=== PATIENT | male | born 1960 | race Caucasian/White ===

== ENCOUNTER 2017-03-20 13:05 | Day surgery (SDC) | payer BC ==
[~2017-03-20 13:05] MED LIST: CLARITIN 10MG T10 MG PO; DIABETA2.5 MG PO; OMNICEF 300 MG300 MG PO; PANTOPRAZOLE SO40 M1 PO; PHENERGAN 25MG.25 M1 PO; ZOFRAN ODT4 MG PO
--- NOTE | 2017-03-20 15:12 | Operative Note ---
Upper GI Endoscopy Procedure date: 03/20/17 Date of : 64 Procedure:Upper GI Endoscopy Esophagogastroduodenoscopy with cold biopsies Indications: Mr. Alvarez is a 56-year-old gentleman with a history of gastroesophageal reflux disease for which he takes omeprazole 40 mg by mouth daily after being diagnosed with short segment Woody's esophagus in 2013 (Dr. Yordan Bird). The patient has had some tickling in the throat with frequent clearance of the throat and mucus accumulation. He formerly had some dysphagia prior to taking omeprazole. He has some mild bloating but no belching. EGD is performed for further evaluation. Performing Provider: Evans Arguelles MD Referring Provider: Akin FLORES Sedation: Fentanyl 150 mg IV/Versed 7 mg IV Procedure: Prior to the procedure, a history and physical exam was performed, and patients medications and allergies were reviewed. The risks and benefits of the procedure and the sedation options and risks were discussed with the patient. All questions were answered and informed consent was obtained. The patient was brought to the procedure room. Patient identification and proposed procedure were verified by the physician and the nurse. The patient was placed in a left lateral decubitus position and the scope was passed under direct vision. Throughout the procedure, the patient's blood pressure, pulse, and oxygen saturations were monitored continuously. The endoscope was introduced through the mouth, and advanced to the second part of duodenum. The upper GI endoscopy was accomplished without difficulty. The patient tolerated the procedure well. Findings: The scope was passed directly into the upper esophagus and advanced to the third portion of the duodenum. The post bulbar duodenum and duodenal bulb were normal with normal mucosa and conniventes except there was some mild duodenal lymphoid stasis. Cold biopsies were taken from the post bulbar duodenum. The scope was withdrawn through a normal duodenal bulb and pylorus into the stomach. There was some bile reflux with mild linear erythema of the antrum. The remainder of the antrum, body and fundus of the stomach were grossly normal. Upon retroflexion there was no hiatal hernia. 2 biopsies were taken in the antrum and along the lesser curvature for histology. The scope was then withdrawn into the esophagus. There was one short tongue of salmon-colored mucosa that was biopsied to rule out intestinal metaplasia/Woody's. There was no evidence of reflux esophagitis and there were some tertiary contractions and evidence of mild esophageal dysmotility. The remainder of the esophageal mucosa was normal. Immediate complications: None EBL (ml): 0 Impression: 1. Nonerosive gastroesophageal reflux disease with mild esophageal dysmotility and mild cricopharyngeal spasm 2. Very short segment Woody's esophagus 3. Bile reflux with mild linear reactive gastritis Recommendations: I do feel that the patient has some functional gastroesophageal reflux disease and may benefit from promotility therapy. We will discuss additional treatment options and I will follow up the biopsies. at 1511
[2017-03-20 16:25] LABS: HEMOGLOBIN 15.6 g/dL (14.1-18.0); LYMPH # 1.8 K/mm3 (0.7-4.5); LYMPH % 21.9 % (10-50)
[2017-03-20 16:41] LABS: BUN 15 mg/dL (7-18)
[2017-03-20 16:43] VITALS: BP 135/90
[2017-03-20 16:46] LABS: GFR (ESTIMATED) 88 ML/MIN (>60)
== END 2017-03-20 16:09 | disposition home or self-care (01) ==
LOC: SDC 13:05
PROVIDERS: Internal Medicine Gastroenterology; Nurse Practitioner Family
PROC: 0DB68ZX Excision of Stomach, Via Natural or Artificial Opening Endoscopic, Diagnostic (ICD-10-PCS; 2017-03-20)
PROC: 0DB98ZX Excision of Duodenum, Via Natural or Artificial Opening Endoscopic, Diagnostic (ICD-10-PCS; principal; 2017-03-20 14:30)
DX: K21.9 Gastro-esophageal reflux disease without esophagitis (principal); K22.4 Dyskinesia of esophagus; J39.2 Other diseases of pharynx; K22.70 Barrett's esophagus without dysplasia; K29.60 Other gastritis without bleeding

== ENCOUNTER 2017-03-28 03:12 | Emergency (ER) | payer BC ==
[~2017-03-28] VITALS: Ht 177.8 cm; Wt 100.7 kg
[2017-03-28] MEDS ORDERED: AMOXICILLIN 50500 MG PO (03:26)
[2017-03-28] MEDS ORDERED: LANSOPRAZOLE30 MG PO (03:27)
[2017-03-28] MEDS ORDERED: BIAXIN FILMTAB500 MG PO (03:27)
[2017-03-28] MEDS ORDERED: ALOGLIPTIN-PIO1 EAC1 PO (03:28)
[2017-03-28] MEDS ORDERED: BUPROPION HCL75 M1 PO (03:28)
--- OUTSIDE RECORDS SUMMARY | 2017-03-28 03:28 | External Medical Summary Rpt | CCD ---
Demographics Preferred Language Dominican Marital Status Unknown Bahai Affiliation Unknown Race Unknown Ethnic Group Unknown Author Author , TOÑO LUNDBERG Address Unknown Phone Immunization No patient found.
--- OUTSIDE RECORDS SUMMARY | 2017-03-28 03:28 | External Medical Summary Rpt | CCD ---
Author Author [employer] Organization [employer] Address Unknown Phone Unavailable Purpose Continuity of Care Document - through 2016
--- OUTSIDE RECORDS SUMMARY | 2017-03-28 03:28 | External Medical Summary Rpt | CCD ---
Author Author , TOÑO Organization TOÑO Address Unknown Phone [email or web address] Care Team Providers Care Eeg Technologist Name Role Phone CARMEN TRAVIS MD, Unavailable Unavailable CARMEN TRAVIS MD Purpose Continuity of Care Document - 02-15-2013 through 2016 Problems Code Diagnosis DOS Provider Status 250.00 250.00 DIAB 02-15-2013 [facility], [facility] Hospital II OR UNSPEC TYPE, NOT UNCNTRLD 780.4 780.4 02-15-2013 [facility] GIDDINESS E86.0 DEHYDRATION K52.9 NONINFECTIV E GASTROENTER ITIS AND COLITIS, UNSPECIFIED N39.0 URINARY TRACT INFECTION, SITE NOT SPECIFIED Allergies, Adverse Reactions, Alerts Type Allergy to substance Adverse Reaction to Substance Substance Reaction Severity INGREDIENT: NO KNOWN Unknown Unknown - NO KNOWN DRUG ALLERGY Medications Na ND Rx Da Fi Fi Am Da Di Ph RX Ph St me C No te ll ll ou ys ag ar # ys at rm s nt no ma ic us Or Da si cy ia de te s n re d SO 00 10 0 No DI 40 -0 UM 97 4- Lo 98 20 ng CH 30 13 er LO 9 RI Ac DE ti ve 0. 9% SO RONAL TI ON Sa 63 10 0 No li 80 -0 ne 70 4- Lo 10 20 ng Fl 07 13 er us 5 h Ac 10 ti ML ve Sy ri ng e DI 00 10 0 No PH 40 -0 EN 92 4- Lo HY [address] 03 13 er AM 1 IN Ac E ti 50 ve MG /M L SY RN G DI 00 10 0 No AZ 40 -0 EP 91 4- Lo AM 27 20 ng 33 13 er 10 2 Ac MG ti /2 ve ML CA RP UJ EC T Vital Signs 02-15-2013 10:08 Name Value Interpretat Reference Comment ion Range Body 98.3 [degF] Temperature BP 92 mm[Hg] Diastolic BP Systolic 140 mm[Hg] Heart 85 /min Rate/Pulse O2% 97 % Respiratory 18 /min Rate 02-15-2013 08:12 Name Value Interpretat Reference Comment ion Range Body 97.9 [degF] Temperature BP 88 mm[Hg] Diastolic BP Systolic 149 mm[Hg] Heart 84 /min Rate/Pulse O2% 99 % Respiratory 18 /min Rate Results Labs Lab Lab Date Result Refere Interp Status Commen Order Detail nces retati t Range on Hemoglobin A1c measurement (03-20-2017 16:06) Hemoglo 10.2 % 0.0-7.0 complet bin A1c 017 ed 16:06 Comment: < 6% NON-DIABETIC LEVEL Comment: < 7% CONTROLLED DIABETIC LEVEL Comment: > 8% POORLY CONTROLLED DIABETIC LEVEL Serum or plasma thyroid stimulating horm (03-20-2017 16:06) Serum = 1.47 0.358-3 complet or 017 uIU/ml .740 ed plasma 16:06 thyroid stimula ting horm Lipid profile (03-20-2017 16:06) Serum = 22.0 0-40 complet or 017 ed plasma 16:06 cholest reinier in VLDL wendi Serum = 110 30-200 complet or 017 mg/dL ed plasma 16:06 triglyc eride measure ment Serum = 161.0 0-130 complet or 017 mg/dL ed plasma 16:06 cholest reinier in LDL measu Serum = 38.0 40-60 complet or 017 MG/DL ed plasma 16:06 cholest reinier in HDL measu Total = 221 < 200 complet cholest 017 mg/dL ed reinier 16:06 measure ment Serum or plasma free thyroxine (T4) wendi (03-20-2017 16:06) Serum = 1.27 0.76-1. complet or 017 ng/dL 46 ed plasma 16:06 free thyroxi ne (T4) wendi Comprehensive metabolic panel (03-20-2017 16:06) Protein = 6.8 6.4-8.2 complet total 017 gm/dL ed ser/roberto 16:06 s ALT = 22 12-78 complet (SGPT) 017 U/L ed ser/roberto 16:06 s Serum = 9 U/L 15-37 complet or 017 ed plasma 16:06 asparta te aminotr ansfera Serum = 137 136-145 complet sodium 017 mmoL/L ed measure 16:06 ment Serum = 4.1 3.5-5.1 complet potassi 017 mmoL/L ed um 16:06 measure ment Serum = 186 74-106 complet or 017 mg/dL ed plasma 16:06 glucose measure ment (mas Serum = 3.3 1.3-3.2 complet globuli 017 gm/dL ed n 16:06 measure ment (mass/v olume) Estimat = 88 >60 complet ed 017 ML/MIN ed glomeru 16:06 lar filtrat ion rate (GF Comment: REFERENCE RANGE: >60 ML/MIN/1.73 SQUARE METERS Comment: If this patient is -Georgian, then multiply the Comment: result by 1.210. Serum = 0.9 0.70-1. complet or 017 mg/dL 30 ed plasma 16:06 creatin ine measure ment ( Carbon = 29 21.0-32 complet dioxide 017 mmoL/L .0 ed 16:06 measure ment Serum = 104 98-107 complet or 017 mmoL/L ed plasma 16:06 chlorid e measure ment (mo Serum = 8.7 8.5-10. complet or 017 mg/dL 1 ed plasma 16:06 calcium measure ment (mas Serum = 15 7-18 complet or 017 mg/dL ed plasma 16:06 urea nitroge n measure men Serum = 0.5 0.2-1.0 complet or 017 mg/dL ed plasma 16:06 total bilirub in measure m Serum = 102 46-116 complet or 017 U/L ed plasma 16:06 alkalin e phospha tase katey Serum = 3.5 3.4-5.0 complet or 017 gm/dL ed plasma 16:06 albumin measure ment (mas Serum = 1.1 1.1-1.8 complet or 017 ed plasma 16:06 albumin /globul in mass ra CBC w auto diff (03-20-2017 16:06) Blood = 8.3 4.8-10. complet leukocy 017 K/MM3 8 ed malik 16:06 count (number /volume ) Automat = 13.4 11.5-17 complet ed 017 % .5 ed erythro 16:06 cyte distrib ution width Red = 5.65 4.6-6.2 complet blood 017 M/mm3 ed cell 16:06 count Blood = 270 142-424 complet platele 017 K/mm3 ed t count 16:06 Automat = 7.2 7.4-10. complet ed 017 fl 4 ed blood 16:06 platele t mean volume katey [place] % = 6.8 % 1.7-9.3 complet 017 ed 16:06 Absolut = 0.6 0.1-1.0 complet e 017 K/mm3 ed monocyt 16:06 e count Automat = 83.1 82.2-97 complet ed 017 fl .8 ed erythro 16:06 cyte mean corpusc ular v Automat = 33.2 31.8-35 complet ed 017 g/dl .4 ed erythro 16:06 cyte mean corpusc ular h Mean = 27.6 27-31.2 complet corpusc 017 pg ed ular 16:06 hemoglo bin (MCH) determ Lymphoc = 21.9 10-50 complet yte 017 % ed count, 16:06 blood, automat ed Absolut = 1.8 0.7-4.5 complet e 017 K/mm3 ed lymphoc 16:06 yte count Blood = 15.6 14.1-18 complet hemoglo 017 g/dL .0 ed bin 16:06 measure ment (mass/v olum Blood = 46.9 42.0-52 complet hematoc 017 % .0 ed rit 16:06 (volume fractio n) Blood = 5.5 1.3-8.0 complet granulo 017 K/mm3 ed cytes 16:06 automat ed count (numb Automat = 4.5 % 0.1-12. complet ed 017 0 ed blood 16:06 eosinop hils/10 0 leukocy t Automat = 0.4 0.0-0.4 complet ed 017 K/mm3 ed blood 16:06 eosinop hil count Automat = 0.1 0-0.2 complet ed 017 K/MM3 ed blood 16:06 basophi l count (count/ vo Granulo = 66.0 37.0-80 complet cyte 017 % .0 ed percent 16:06 age Baso % = 0.8 % 0.1-2.0 complet 017 ed 16:06 Hemoglobin A1c in Blood (03-20-2017 16:06) Hemoglo 10.2 % 0.0% High complet bin A1c 017 - ed in 16:06 7.0% Blood Glucose capillary blood glucometer (03-20-2017 13:43) Glucose = 197 70-110 complet 017 mg/dl ed capilla 13:[address] COMPREHENSIVE METABOLIC PANEL (02-15-2013 07:40) Glucose 285 74-106 complet 013 mg/dL ed Bld-mCn 07:40 c BUN 20 7-18 complet Bld-mCn 013 mg/dL ed c 07:40 Creat 1.2 0.8-1.3 complet SerPl-m 013 mg/dL ed Cnc 07:40 ESTIMAT 109 50-200 complet ED 013 ML/MIN ed CREATIN 07:40 INE CLEARAN CE GFR 64 Greater complet (ESTIMA 013 ML/MIN than ed ISABELLE) 07:40 60 Sodium 141 136-145 complet SerPl-s 013 mmoL/L ed Cnc 07:40 Potassi 4.1 3.5-5.1 complet um 013 mmoL/L ed SerPl-s 07:40 Cnc Chlorid 104 98-107 complet e 013 mmoL/L ed SerPl-s 07:40 Cnc CO2 28 21.0-32 complet SerPl-s 013 mmoL/L .0 ed Cnc 07:40 Calcium 02-15-2 8.8 8.5-10. complet 013 mg/dL 1 ed SerPl-m 07:40 Cnc Prot 04-2 7.1 6.4-8.2 complet SerPl-m 013 gm/dL ed Cnc 07:40 Albumin 02-15-2 3.6 3.4-5.0 complet 013 gm/dL ed SerPl-m 07:40 Cnc Globuli 02-15-2 3.5 1.3-3.2 complet n 013 gm/dL ed Ser-mCn 07:40 c Albumin 2 1.0 UNK 1.1-1.8 complet /Glob 013 ed SerPl-m 07:40 Rto Bilirub 02-15-2 0.5 0.2-1.0 complet 013 mg/dL ed SerPl-m 07:40 Cnc AST 02-15-2 13 U/L 15-37 complet SerPl-c 013 ed Cnc 07:40 ALT 02-15-2 44 U/L 30-65 complet SerPl-c 013 ed Cnc 07:40 ALP 02-15-2 155 U/L 50-136 complet SerPl-c 013 ed Cnc 07:40 Amylase SerPl-cCnc (02-15-2013 07:40) Amylase 02-15-2 28 U/L 25-115 complet 013 ed SerPl-c 07:40 Cnc LIPASE (02-15-2013 07:40) LIPASE 02-15-2 70 U/L 73-393 complet 013 ed 07:40 CBC with AUTO DIFF (02-15-2013 07:40) WBC # 10-04-2 9.1 4.8-10. complet Bld 013 K/MM3 8 ed Auto 07:40 RBC # 10-04-2 5.93 4.6-6.2 complet Bld 013 M/mm3 ed Auto 07:40 Hgb 02-15-2 16.7 14.1-18 complet Bld-mCn 013 g/dL .0 ed c 07:40 Hct Fr 02-15-2 48.9 % 42.0-52 complet Bld 013 .0 ed 07:40 MCV RBC 02-15-2 82.4 fl 82.2-97 complet 013 .8 ed 07:40 MCH RBC 02-15-2 28.1 pg 27-31.2 complet Qn 013 ed Auto 07:40 MEAN 10-04-2 34.2 31.8-35 complet CORPUSC 013 g/dl .4 ed ULAR 07:40 HGB CONC RDW RBC 10-04-2 14.8 % 11.5-17 complet Auto 013 .5 ed 07:40 Platele 10-04-2 233 142-424 complet t Bld 013 K/mm3 ed Ql 07:40 Manual MEAN 10-04-2 7.5 fl 7.4-10. complet PLATELE 013 4 ed T 07:40 VOLUME Granulo 10-04-2 76.8 % 37.0-80 complet cytes 013 .0 ed Fr Bld 07:40 Auto LYMPH % 10-04-2 15.8 % 10-50 complet 013 ed 07:40 Monocyt 10-04-2 5.2 % 1.7-9.3 complet es Fr 013 ed Bld 07:40 Auto Eosinop 10-04-2 1.9 % 0.1-12. complet hil Fr 013 0 ed Bld 07:40 Auto Basophi 10-04-2 0.3 % 0.1-2.0 complet ls Fr 013 ed Bld 07:40 Auto Granulo 10-04-2 7.0 1.3-8.0 complet cytes # 013 K/mm3 ed Bld 07:40 Auto Lymphoc 10-04-2 1.4 0.7-4.5 complet ytes Fr 013 K/mm3 ed Bld 07:40 Auto Monocyt 10-04-2 0.5 0.1-1.0 complet es # 013 K/mm3 ed Bld 07:40 Auto Eosinop 10-04-2 0.2 0.0-0.4 complet hil # 013 K/mm3 ed Bld 07:40 Auto Basophi 10-04-2 0.0 0-0.2 complet ls # 013 K/MM3 ed Bld 07:40 Auto Encounters Encounter Start End Date Code Location Performer Type Date Emergency VANESSA TRAVIS (ER) 3 07:29 3 10:10 [facility] CARMEN
--- OUTSIDE RECORDS SUMMARY | 2017-03-28 03:28 | External Medical Summary Rpt ---
Author Author TOÑO Gomez, TOÑO [employer] Organization [employer] Address Unknown Phone Unavailable Results Hemoglobin A1c in Blood Observa Value Referen Units Interpr Notes Date tion ce etation Range Hemoglo 10.2 0.0 - % High < 6% Mar 20 bin A1c 7.0 NON-ALLEN 2017 in BETIC 4:06 PM Blood LEVEL< 7% CONTROL LED DIABETI C LEVEL> 8% POORLY CONTROL LED DIABETI C LEVEL Comprehensive metabolic 2000 panel in Serum or Plasma Observa Value Referen Units Interpr Notes Date tion ce etation Range Albumin/G 1.1 - 1.8 No Normal No Mar 20 lobulin informati informati 2016 4:06 [Mass on in on in PM ratio] in source source Serum or data data Plasma Albumin 3.4 - 5.0 gm/dL Normal No Mar 20 [Mass/vol informati 2016 4:06 ume] in on in PM Serum or source Plasma data Alkaline 46 - 116 U/L Normal No Mar 20 phosphata informati 2016 4:06 se on in PM [Enzymati source c data activity/ volume] in Serum or Plasma Bilirubin 0.2 - 1.0 mg/dL Normal No Mar 20 .total informati 2016 4:06 [Mass/vol on in PM ume] in source Serum or data Plasma Urea 7 - 18 mg/dL Normal No Mar 20 nitrogen informati 2016 4:06 [Mass/vol on in PM ume] in source Serum or data Plasma Calcium 8.5 - mg/dL Normal No Mar 20 [Mass/vol 10.1 informati 2017 4:06 ume] in on in PM Serum or source Plasma data Chloride 98 - 107 mmoL/L Normal No Mar 20 [Moles/vo informati 2017 4:06 lume] in on in PM Serum or source Plasma data Carbon 21.0 - mmoL/L Normal No Mar 20 dioxide, 32.0 informati 2017 4:06 total on in PM [Moles/vo source lume] in data Serum or Plasma Creatinin 0.70 - mg/dL Normal No Mar 20 e 1.30 2016 4:06 [Mass/vol on in PM ume] in source Serum or data Plasma Estimated >60 ML/MIN No REFERENCE Mar 20 informati RANGE: 2017 4:06 glomerula on in >60 PM r source ML/MIN/1. filtratio data 73 SQUARE n rate METERSIf (GF this patient is -A merican, then multiply theresult by 1.210. Globulin 1.3 - 3.2 gm/dL High Mar 20 [Mass/vol informati 2016 4:06 ume] in on in PM Serum source data Glucose 74 - 106 mg/dL High No Mar 20 [Mass/vol informati 2016 4:06 ume] in on in PM Serum or source Plasma data Potassium 3.5 - 5.1 mmoL/L Normal No Mar 202016 4:06 [Moles/vo on in PM lume] in source Serum or data Plasma Sodium 136 - 145 mmoL/L Normal Mar 20 [Moles/vo 2016 4:06 lume] in on in PM Serum or source Plasma data Aspartate 15 - 37 U/L Low No Mar 20 informati 2016 4:06 aminotran on in PM sferase source [Enzymati data c activity/ volume] in Serum or Plasma Alanine 12 - 78 U/L Normal Mar 20 aminotran 2016 4:06 sferase on in PM [Enzymati source c data activity/ volume] in Serum or Plasma Protein 6.4 - 8.2 gm/dL Normal Mar 20 [Mass/vol ati 2016 4:06 ume] in on in PM Serum or source Plasma data Thyroxine (T4) free [Mass/volume] in Serum or Plasma Observa Value Referen Units Interpr Notes Date tion ce etation Range Thyroxine 0.76 - ng/dL Normal Mar 20 (T4) 1.46 ati 2016 4:06 free on in PM [Mass/vol source ume] in data Serum or Plasma Lipid 1996 panel in Serum or Plasma Observa Value Referen Units Interpr Notes Date tion ce etation Range Cholester < 200 mg/dL High No Mar 20 ol informati 2016 4:06 [Moles/vo on in PM lume] in source Unspecifi data ed specimen Cholester 40 - 60 MG/DL Low Mar 20 ol in HDL informati 2016 4:06 on in PM [Mass/vol source ume] in data Serum or Plasma Cholester 0 - 130 mg/dL High No Mar 20 ol in LDL 2016 4:06 on in PM [Mass/vol source ume] in data Serum or Plasma by calculati on Triglycer 30 - 200 mg/dL Normal No Mar 20 sofie 2016 4:06 [Moles/vo on in PM lume] in source Serum or data Plasma Cholester 0 - 40 No Normal No Mar 20 ol in inform inform2016 4:06 VLDL on in on in PM [Mass/vol source source ume] in data data Serum or Plasma Thyrotropin [Units/volume] in Serum or Plasma Observa Value Referen Units Interpr Notes Date tion ce etation Range Thyrotrop 0.358 - uIU/ml No No Mar 20 in 3.740 informati informati 2016 4:06 [Units/vo on in on in PM lume] in source source Serum or data data Plasma CBC W Auto Differential panel in Blood Observa Value Referen Units Interpr Notes Date tion ce etation Range Basophils 0 - 0.2 K/MM3 Normal No Mar 202016 4:06 [#/volume on in PM ] in source Blood by data Automated count Basophils 0.1 - 2.0 % Normal No Mar 20 /100 inform2016 4:06 leukocyte on in PM s in source Blood by data Automated count Eosinophi 0.0 - 0.4 K/mm3 Normal No Mar 20 ls 2016 4:06 [#/volume on in PM ] in source Blood by data Automated count Eosinophi 0.1 - % Normal No Mar 20 ls/100 12.0 informati 2016 4:06 leukocyte on in PM s in source Blood by data Automated count Granulocy 1.3 - 8.0 K/mm3 Normal No Mar 20 malik 2016 4:06 [#/volume on in PM ] in source Blood by data Automated count Granulocy 37.0 - % Normal No Mar 20 malik/100 80.0 informati 2016 4:06 leukocyte on in PM s in source Blood by data Automated count Hematocri 42.0 - % Normal No Mar 20 t [Volume 52.0 informati 2016 4:06 on in PM Fraction] source of Blood data Hemoglobi 14.1 - g/dL Normal No Mar 20 n 18.0 informati 2017 4:06 [Mass/vol on in PM ume] in source Blood data Lymphocyt 0.7 - 4.5 K/mm3 Normal No Mar 20 es informati 2016 4:06 [#/volume on in PM ] in source Unspecifi data ed specimen by Automated count Lymphocyt 10 - 50 % Normal No Mar 20 es informati 2016 4:06 [#/volume on in PM ] in source Unspecifi data ed specimen by Automated count Erythrocy 27 - 31.2 pg Normal No Mar 20 te mean informati 2016 4:06 corpuscul on in PM ar source hemoglobi data n [Entitic mass] Erythrocy 31.8 - g/dl Normal No Mar 20 te mean 35.4 informati 2017 4:06 corpuscul on in PM ar source hemoglobi data n concentra tion [Mass/vol ume] by Automated count Erythrocy 82.2 - fl Normal No Mar 20 te mean 97.8 informati 2016 4:06 corpuscul on in PM ar volume source [Entitic data volume] by Automated count Monocytes 0.1 - 1.0 K/mm3 Normal No Mar 20 informati 2016 4:06 [#/volume on in PM ] in source Blood by data Automated count Monocytes 1.7 - 9.3 % Normal No Mar 6 /100 informati 2017 4:06 leukocyte on in PM s in source Blood by data Automated count Platelet 7.4 - fl Low No Mar 20 mean 10.4 informati 2017 4:06 volume on in PM [Entitic source volume] data in Blood by Automated count Platelets 142 - 424 K/mm3 Normal No Mar 20 informati 2016 4:06 [#/volume on in PM ] in source Blood data Erythrocy 4.6 - 6.2 M/mm3 Normal No Mar 6 malik informati 2017 4:06 [#/volume on in PM ] in source Amniotic data fluid Erythrocy 11.5 - % Normal No Mar 20 te 17.5 informati 2016 4:06 distribut on in PM ion width source [Entitic data volume] by Automated count Leukocyte 4.8 - K/MM3 Normal No Mar 6 s 10.8 informati 2016 4:06 [#/volume on in PM ] in source Blood data Glucose [Mass/volume] in Capillary blood by Glucometer Observa Value Referen Units Interpr Notes Date tion ce etation Range Glucose 70 - 110 mg/dl High No Nov 6 [Mass/vol informati 2017 1:43 ume] in on in PM Capillary source blood by data Glucamadou r
--- OUTSIDE RECORDS SUMMARY | 2017-03-28 03:28 | External Medical Summary Rpt | CCD ---
Author Author , TOÑO Organization TOÑO Address Unknown Phone [email or web address] Care Team Providers Care Consumer Loan Officer Name Role Phone CARMEN TRAVIS MD, Unavailable Unavailable CARMEN TRAVIS MD Purpose Continuity of Care Document - 02-15-2013 through 2016 Problems Code Diagnosis DOS Provider Status 250.00 250.00 DIAB 02-15-2013 [facility], [facility] Hospital II OR UNSPEC TYPE, NOT UNCNTRLD 780.4 780.4 02-15-2013 [facility] GIDDINESS E86.0 DEHYDRATION K52.9 NONINFECTIV E GASTROENTER [...] SQUARE METERS Comment: If this patient is -Malaysian, then multiply the Comment: result by 1.210. [...] blood 16:06 platele t mean volume katey [place] % = 6.8 % 1.7-9.3 complet 017 [...] VANESSA TRAVIS (ER) 3 07:29 3 10:10 [facility] CARMEN
--- OUTSIDE RECORDS SUMMARY | 2017-03-28 03:28 | External Medical Summary Rpt | CCD ---
Demographics Preferred Language Bruneian Marital Status Unknown [facility] Affiliation Unknown Race Unknown Ethnic Group Unknown Author Author , TOÑO LUNDBERG Address Unknown Phone Immunization No patient found.
--- NOTE | 2017-03-28 03:39 | Emergency Room Report ---
History of Present Illness Time Seen by MD Chester Presenting Problem in Triage Pt arrived:Walked Presenting Problem:C/O PAIN TO UPPER BACK, PAIN RADIATES INTO RIGHT UPPER QUAD REPORTS HAVE A EDG LAST WEEK. 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 N Clinical Suspician of Infection? N Mental Status: 1 - Regular (Normal Baseline) Sepsis Risk:Low Sepsis Risk Have you (or family members/close friends) recently traveled outside the [place]? N If Yes, where/when: Have you had exposure to infectious disease within the past month? N TB? Other? Specify: Source patient, RN notes reviewed, family, old records Exam Limitations no limitations Comment acute onset of rt upper abd pain with nausea and presents for eval- he had recent dx of h pylori and is on abx - no etoh or known gb dis Cardiac Chest Pain Chest pain indicative of cardiac No Timing/Duration this evening Severity moderate ALLERGIES Coded Allergies: Chicken Meat (THROAT CLOSES, MOUTH SWELLS 03/20/17) Home Medications Active Scripts CEFDINIR (Cefdinir) 300 MG PO DAILY 10 Days Prov: 08/14/14 Reported Medications Loratadine (Claritin 10MG) 10 MG PO DAILY Pantoprazole Sodium 40 MG PO DAILY #30 Amoxicillin Trihydrate (Amoxicillin 500MG) 500 MG PO BID #56 Clarithromycin (BIAXIN 500MG FILMTAB) 250 MG PO BID #28 Lansoprazole (Lansoprazole) 30 MG PO DAILY #28 Alogliptin Jr/Pioglitazone (Alogliptin-Pioglit 25-30 MG Tb) 1 EACH PO DAILY #30 BUPROPION HCL (Bupropion HCl 75MG) 75 MG PO DAILY #60 History Medical History General CAD? No Angina: No IA: No Hypertension? No Hyperlipidemia? No CHF? No DVT? No PE? No COPD? No Asthma? No Anemia? No GERD? Yes Gastric ulcers? No GI Bleed? No Hernia? No Thyroid Problems? No Hypothyroidism? No CVA? No Seizures? No Diabetes? Yes Insulin Dependent: No Insulin Pump: No Home FSBS? Yes Renal Insuffiency? No End Stage Renal Disease? No UTI? No Stones? No BPH? No GB Disease: Yes Nephritic Syndrome? No Asplenia? No Hepatitis? No Sickle Cell Disease? No Arthritis? No Migraines? No Cataracts? No Glaucoma? No MRSA? No HIV? No TB? No Anxiety? No Depression? No Cancer? No More? No Immunization Hx DT/Tetanus > 10 Years Ago Flu 2YRSorMore Pneumonia NEVER Surgical Hx Previous Surgery?Y Tonsils INGROWN TOENAILS Family History Family Hx Diabetes Yes CAD No Hypertension No Hyperlipidemia No Cancer Yes TB No Social History Smoking Hx Smoker: Never Smoker Tobacco: No Are you/the child exposed to second-hand smoke: No Alcohol Alcohol: No Drugs none Review of Systems All Other Systems Reviewed and Negative Constitutional denies fever Eyes denies drainage ENT denies: ear discharge, epistaxis, throat pain. Respiratory denies cough, denies shortness of breath, denies wheezing Cardiovascular denies chest pain, denies syncope Gastrointestinal see HPI, abdominal pain, nausea, denies vomiting Genitourinary denies: dysuria, frequency, hesitancy, hematuria. Musculoskeletal denies back pain, denies joint pain, denies joint swelling, denies neck pain Skin denies rash Psychiatric/Neurological denies headache, denies seizure Physical Exam Vital Signs Vital Signs Date Time Temp Pulse Resp B/P Pulse O2 O2 Flow FiO2 Ox Delivery Rate 03/28 0442 97.5 86 18 131/82 97 03/28 0334 18 03/28 0322 97.5 88 18 153/89 98 - WBC >12,000 or <4,000 or 10% bands? 2 or more SIRS Criteria Met? B/P:131/82 MAP:110 Creatinine >2.0? UA output<0.5ml/kg/hr for 2 hrs? Platelet count >100,000? Lactate >2.0mmol/1? INR >1.2 or PTT > than 60 sec? Evidence of Organ Dysfunction? Provider documented clinical suspician of infection? N Sepsis Criteria Count: 0 Sepsis Risk: Low Sepsis Risk General Appearance no apparent distress Eye Exam - bilateral eye PERRL, bilateral eye EOMI Ear, Nose, Throat normal ENT inspection Neck supple Respiratory Status No: respiratory distress. Lung Sounds bilateral: lungs clear. 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 No Results/Orders Laboratory Tests 03/28/17328: Troponin I < 0.02 03/28/17328: Sodium 136, Potassium 3.5, Chloride 98, Carbon Dioxide 31, BUN 16, Creatinine 1.0, Estimated Creat Clear 120, Estimated GFR (MDRD) 78, Glucose 340 H, Calcium 9.3, Total Bilirubin 0.6, AST 12 L, ALT 28, Alkaline Phosphatase 144 H, Total Protein 7.7, Albumin 3.8, Globulin 3.9 H, Albumin/Globulin Ratio 1.0 L, Amylase 54, Lipase 353, WBC 10.7, RBC 5.97, Hgb 16.7, Hct 50.8, MCV 85.1, RDW 13.4, Plt Count 292, MPV 7.5, Gran % 68.8, Gran # 7.4, Lymphocytes % 19.1, Monocytes % 7.0, Eosinophils % 4.5, Basophils % 0.6, Lymphocytes # 2.1, Monocytes # 0.8, Eosinophils # 0.5 H, Basophils # 0.1, PUBS MCHC 32.9, MCH 28.0 , Urine Color YELLOW, Urine Appearance CLEAR, Urine pH 6.0, Ur Specific Essie 1.015, Urine Protein NEGATIVE, Urine Ketones NEGATIVE, Urine Blood NEGATIVE, Urine Nitrate NEGATIVE, Urine Bilirubin NEGATIVE, Urine Urobilinogen 0.2, Ur Leukocyte Esterase NEGATIVE, Urine WBC OCC, Urine Bacteria OCC, Urine Glucose 3+ H Current Medication Orders Sig/Pancho Start time Last Medication Dose Route Stop Time Status Admin Ketorolac 0 .STK-MED ONE 03/28 333 DC Tromethamine .ROUTE Ondansetron HCl 0 .STK-MED ONE 03/28 333 DC .ROUTE Sodium Chloride 1,000 ML .K-MED ONE 11/14 0332 DC IV Ketorolac 30 MG ONCE ONE 03/28 0330 DC 03/28 Tromethamine IV 03/28 033 0334 Ondansetron HCl 4 MG ONCE ONE 03/28 0330 DC 03/28 IV 03/28 0331 0333 Sodium Chloride 10 ML PRN PRN 03/28 0330 AC IV 03/29 0317 Sodium Chloride 1,000 ML .Q1H1M 03/28 0330 DC 03/28 IV 03/28 0430 0333 Sodium Chloride 10 ML PRN PRN 03/28 0330 AC IV 03/29 0330 Orders Procedure Date/time Status DIET-NOTHING BY MOUTH 03/28 B Active TROPONIN I 03/[address] ABD & PELVIS W/O CONTRAST 03/[address] ABD/PELVIS REQ 03/28 034 Complete IV SALINE LOCK 03/28 031 Active URINALYSIS/COMPLETE 03/28 0317 Complete LIPASE 03/28 0317 Complete CBC WITH AUTO DIFF 03/28 317 Complete CHEM 12 PROFILE 03/28 0317 Complete AMYLASE 03/28 0317 Complete XRAY/CT/US XRAY/CT/US CT abdomen, pelvis CT interpretation by discussed w/radiologist Time results known: 0453 CT Results abnormal (see report) Departure Departure Time of Disposition 0501 Disposition DC Home or Self Care(routine) Clinical Impression Primary Impression: Abdominal pain Qualifiers: Abdominal location: right upper quadrant Qualified Code: R10.11 - Right upper quadrant pain Condition STABLE Referrals Parviz Islas MD (Family) Patient Instructions DI for Abdominal Pain-Adult Additional Instructions fluids and stop abx and call pcp for follow up Discharge Counseling Counseled pt/family regarding diagnosis, test results, medications/RX, follow up needs ED Critical Care Critical Care No at 0503
[2017-03-28 04:26] LABS: URINE BILIRUBIN - DIPSTICK NEGATIVE (NEG); URINE BLOOD NEGATIVE (NEG)
[2017-03-28 04:27] LABS: HEMOGLOBIN 16.7 g/dL (14.1-18.0); LYMPH # 2.1 K/mm3 (0.7-4.5); LYMPH % 19.1 % (10-50)
[2017-03-28 05:04] VITALS: BP 131/82
--- NOTE | 2017-03-28 05:16 | RADIOLOGY REPORT PS360 ---
CT ABD PELVIS W/O CONTRAST CLINICAL INDICATION: Right-sided abdominal pain ABD PAIN ORDERING PHYSICIAN: Mary Alice Islas MD PATIENT AGE: 56 years COMPARISON: None TECHNIQUE: Axial images obtained with sagittal and coronal reformats. PROCEDURE: Oral Contrast: None IV Contrast: None . FINDINGS: Lower thorax: No acute finding ABDOMEN: Liver: No masses or biliary dilatation. Gallbladder: Nondistended. No radio opaque stones. Pancreas: There is mild infiltration of the fat Spleen: Unremarkable. Around the pancreatic head and along the central mesentery's which could be related to mild pancreatitis. Few scattered small nodes are present in the mesenteric fat as well. Adrenals: Unremarkable Kidneys/ureters: No masses. No renal calculi. No hydronephrosis. No perinephric fluid collections. No ureteral dilatation or obvious ureteral calculi. Stomach bowel: Diverticulosis of the sigmoid colon and or undistended haustra. No evidence of diverticulitis Appendix: No evidence of appendicitis. PELVIS: Reproductive: Unremarkable Bladder: Nondistended. No obvious stones or masses. ABDOMEN & PELVIS: Peritoneum: Slight increased density in central mesenteric fat inferior to the head of the pancreas Lymph nodes: No enlarged lymph nodes apparent. Vasculature: No evidence of abdominal aortic aneurysm. No retroperitoneal hemorrhage evident. Bones: No acute fracture IMPRESSION: 1. Mild induration of the fat surrounding the pancreatic head and in the upper mesenteric fat which could be related to pancreatitis. Please correlate with laboratory values and other clinical findings. 2. Otherwise negative
== END 2017-03-28 05:11 | disposition home or self-care (01) ==
LOC: ER 03:12
PROVIDERS: Emergency Medicine
DX: R10.11 Right upper quadrant pain (principal); Z91.018 Allergy to other foods; Z79.899 Other long term (current) drug therapy
CPT/HCPCS: J2405

== ENCOUNTER → 2017-03-29 | Outpatient (CLI) | payer BC ==
[~2017-03-29] MED LIST changes: +ALOGLIPTIN-PIO1 EAC1 PO; +AMOXICILLIN 50500 MG PO; +BIAXIN FILMTAB500 MG PO; +BUPROPION HCL75 M1 PO; +LANSOPRAZOLE30 MG PO
--- NOTE | 2017-03-29 13:35 | RADIOLOGY REPORT PS360 ---
US RUQ-(ABD LTD)1ORGAN/QUAD/FU HISTORY: RUQ PAINright upper quadrant pain mid upper back pain radiates to the right upper quadrant bloating belching Patient Age: 56 years: Male Ordering Physician: Eugenia Harding APRN TECHNIQUE: Ultrasound right upper quadrant COMPARISON :[address] abdomen pelvis 03/28/2017 FINDINGS Pancreas. Not optimally seen but appears grossly unremarkable. Partially obscured by overlying gas; but no focal lesions nor fluid collections.. No pancreatic ductal dilatation Liver. No focal lesions no biliary ductal dilatation . Question some early mild diffuse fatty changes. Equivocal Portal vein normal caliber and normal direction flow Gallbladder. Normal size. No shadowing stones. Unremarkable sludge. Upper normal wall thickness. If symptoms Persist consider HIDA. Ultrasound appearance gallbladder with no significant change since 2013 Common duct normal size but no dilatation. Less than 4 mm at hilum of liver Right kidney appears normal at 10.6 seem in length with no hydronephrosis nor mass. Cortex well-maintained. IMPRESSION 1. Gallbladder stable No gallstones evident. No sludge. Borderline wall thickness 2. Common duct normal. Pancreas and right kidney unremarkable 2.
== END ==
LOC: RAD 12:53
DX: R10.11 Right upper quadrant pain (principal)

== ENCOUNTER → 2017-04-14 | Outpatient (CLI) | payer BC ==
--- NOTE | 2017-04-14 16:20 | RADIOLOGY REPORT PS360 ---
[facility] HEPATOBILIARY SCAN HISTORY: RUQ PAIN, ORDERING PHYSICIAN: Parviz Islas MD PATIENT AGE: 56 years COMPARISON: Gallbladder ultrasound 03/29/2017 DOSE: 8.23 mCi Choletec Fatty meal for gallbladder contraction FINDINGS: Homogeneous activity is present within the hepatic parenchyma. Activity is present in the gallbladder by 5 minutes. Activity is present in the small bowel by 10 minutes. The gallbladder ejection fraction is calculated to be 49%, within normal limits The patient did not report pain or other symptoms during the fatty meal ingestion. IMPRESSION: Unremarkable hepatobiliary scan and gallbladder ejection fraction. No evidence of common or cystic duct obstruction with normal gallbladder ejection fraction
== END ==
LOC: RAD 04-07 10:30
DX: R10.11 Right upper quadrant pain (principal)
CPT/HCPCS: A9537